=== PATIENT | male | born 1935 | race Caucasian/White ===

== ENCOUNTER 2023-01-03 13:11 | Emergency (ER) | payer OTHER ==
[2023-01-03] MEDS ORDERED: Losartan 25 MG Tab PO ONE (13:12)
[2023-01-03] MEDS: Losartan 25 MG Tab PO SCH (14:43)
== END 2023-01-03 14:58 ==
LOC: FB.ED 13:11
DX: N39.0 Urinary tract infection, site not specified (principal); Z13.6 Encounter for screening for cardiovascular disorders; I11.0 Hypertensive heart disease with heart failure; I50.9 Heart failure, unspecified
CPT/HCPCS: 99282; A9270